=== PATIENT | female | born 1950 | race Caucasian/White ===

== ENCOUNTER → 2024-02-23 16:43 | Outpatient (REF) | payer MEDICARE, SELFPAY | LOC: WDC 16:43 | PROVIDERS: ATTENDING PHYSICIAN Obstetrics & Gynecology Gynecology; FAMILY PHYSICIAN Family Medicine | DX: Z12.31 Encounter for screening mammogram for malignant neoplasm of breast (principal) | CPT/HCPCS: 77063; 77067 ==

== ENCOUNTER → 2025-03-06 16:12 | Outpatient (REF) | payer MEDICARE, SELFPAY | LOC: WDC 16:12 | PROVIDERS: ATTENDING PHYSICIAN Obstetrics & Gynecology Gynecology; FAMILY PHYSICIAN Family Medicine | DX: Z12.39 Encounter for other screening for malignant neoplasm of breast (principal); Z12.31 Encounter for screening mammogram for malignant neoplasm of breast | CPT/HCPCS: 77063; 77067 ==

== ENCOUNTER 2025-05-24 13:35 | Emergency (ER) | payer MEDICARE, SELFPAY ==
[2025-05-24 13:39] VITALS: BP 171/107
--- NOTE | 2025-05-24 15:00 | ED.GENMED ---
History of Present Illness
General
Chief Complaint: Fall
Time Seen by Provider: 05/24/25 14:11
History of Present Illness
History of Present Illness:
FOCUSED PAST MEDICAL HISTORY
-
REVIEW OF OLD RECORDS
-
Note:
CHIEF COMPLAINT(S)
Fall with injury to the left wrist and head.
HISTORY OF PRESENT ILLNESS
The patient is a 74-year-old female who reports having a fall at [employer] earlier today around 12 to 1:30 PM. During the fall, she sustained a bump on the upper, outside part of her right eyebrow and a potential fracture of the left wrist. The patient
denies neck pain and has no pain in the upper arms, legs, hips, belly, or torso. She reports pain in the left wrist as she landed on her arm and hit her head during the fall. The evaluation includes an X-ray showing a fracture of the distal radius
of the left wrist with no significant bone displacement. A brain CT scan was performed, and preliminarily, there is no evidence of intracranial bleeding noted by the attending provider.
PAST MEDICAL AND SURGICAL HISTORY
The patient denies taking blood thinning medications, such as Xarelto, Coumadin, or aspirin.
PHYSICAL EXAM
General: Alert, no acute distress.
Skin: Warm, dry.
Head: Normocephalic, atraumatic. Small hematoma superior to the right lateral eyebrow.
Neck: Supple, trachea midline. No midline C spine tenderness.
Eye, Ears, Nose, Mouth, and Throat: Oral mucosa moist.
Cardiovascular: Normal peripheral perfusion, no edema.
Respiratory: Respirations are non-labored.
Gastrointestinal: Abdomen nondistended.
Musculoskeletal: Pain upon movement on the left wrist with good distal perfusion. Normal range of motion and strength in other areas. Moderate tenderness to palpation of the distal left wrist.
Neurological: Alert and oriented to person, place, time, and situation, no focal neurological deficit observed.
Psychiatric: Cooperative, appropriate mood & affect.
PROBLEM LIST
- Acute: Fracture of the left distal radius, small hematoma of the right eyebrow.
PLAN
- Apply a bowler splint to the left wrist to stabilize the fracture.
- Advise removal of any rings on the left hand to prevent circulation issues due to swelling.
- Recommend follow-up with an graphics production specialist for further evaluation and management of the wrist fracture.
- Monitor for changes in swelling or circulation in the left hand.
- Await official radiology reading of the CT scan to confirm no intracranial bleeding.
DIFFERENTIAL DIAGNOSIS
The Differential Diagnosis includes, in no particular order and is not limited to:
- Distal radius fracture
- Head trauma with possible concussion
- Intracranial hemorrhage
- Soft tissue injury of the scalp
- Bony contusion of the wrist
- Sprain of the wrist ligaments
- Muscle strain related to the fall
- Cervical spine injury (though unlikely given lack of symptoms)
- Hematoma formation
- Compartment syndrome of the wrist due to swelling
Disposition:
SUMMARY OF ENCOUNTER
The patient, a 74-year-old female, presented to the emergency department after experiencing a fall at [employer], resulting in a bump on her right eyebrow and a potential fracture of the left wrist. Evaluation revealed a small hematoma on the right
eyebrow with no signs of intracranial bleeding on the CT scan. Wrist X-ray showed a fracture of the distal radius with slight bone displacement, insufficient for immediate manipulation. The patient reported her wrist pain as mild, rated at a three
on a scale out of ten. Pain management options were discussed, and the use of acetaminophen (Tylenol) was suggested for pain relief. She was fitted with a splint to stabilize the wrist fracture and was advised to follow up with an orthopedic
specialist.
PLAN
- Apply a bowler splint to the left wrist for stabilization.
- Advise the patient to take acetaminophen for pain management.
- Recommend scheduling a follow-up appointment with an graphics production specialist.
- Provide contact information of the on-call orthopedic doctor for immediate scheduling, if possible.
INDEPENDENT REVIEW OF LABS AND INTERPRETATION OF TESTS
- My independent interpretation of the brain CT scan showed no intracranial bleeding, focusing on the external cosmetic bruising.
- My independent interpretation of the left wrist X-ray confirmed a distal radius fracture with slight displacement.
PATIENT EDUCATION AND COUNSELING
The patient was advised that the swelling and bruising around the right eyebrow may worsen before improving and may change colors over the next few days. Non-operative alternatives for pain management were discussed, highlighting the use of
acetaminophen. Travel limitations were discussed considering the wrist fracture and potential discomfort with the splint.
FOLLOW-UP INSTRUCTIONS
The patient was advised to follow up with an graphics production specialist as soon as possible and was provided with the contact details of the on-call orthopedic doctor for scheduling an appointment based on immediate availability.
MEDICATION RECONCILIATION
- Acetaminophen (Tylenol): suggested for pain management, with a recommendation to take two extra-strength tablets, amounting to 1000 mg, four times a day as needed.
MEDICAL DECISION MAKING
- Number and Complexity of Problems Addressed: Chronic conditions affecting care not specifically mentioned. Differential Diagnosis includes distal radius fracture, head trauma with possible concussion, and soft tissue injury.
- Data:
Category 1:
- My independent interpretation of CT and X-ray.
- Risk:
- Prescription medication was considered; however, no narcotics were prescribed in favor of acetaminophen for pain management.
DIAGNOSIS
- S52.501A: Fracture of unspecified part of left radius, initial encounter for closed fracture.
- S00.83XA: Contusion of other part of head, initial encounter.
RADIOLOGY
- X-ray shows distal radius fracture with minimal displacement, CT brain shows no intracranial abnormality
Patient will be splinted
She declines narcotic analgesia and will take Tylenol for pain
She will follow-up with orthopedics
Phy Exam
Physical Exam
Physical Exam:
See HPI
Course
Orders/Labs/Results
Orders:
Orders
05/24/25 13:42
CT Head W/o Iv Contrast Urgent
Comment:
Reason For Exam: injury
CR Wrist - Left Min 3 Views Urgent
Comment:
Reason For Exam: injury
05/24/25 14:29
Splints/Slings/Crut- Treatment ONCE
Sling to: Left Arm
Location: Left
Type of Splint: Volar
Vital Signs
Initial and Last Documented VS:
Initial Vital Signs
Temp Pulse Resp BP Pulse Ox
36.7 C 87 20 171/107 96
05/24/25 13:39 05/24/25 13:39 05/24/25 13:39 05/24/25 13:39 05/24/25 13:39
Last Documented Vital Signs
Temp Pulse Resp BP Pulse Ox
36.7 C 87 20 171/107 96
05/24/25 13:39 05/24/25 13:39 05/24/25 13:39 05/24/25 13:39 05/24/25 13:39
*Pulse Oximetry
SaO2: 96
Oxygen Mode of Delivery: Room air
Patient hypoxic: no
*Critical Care Note
Total Time (30-74mins, 75-104mins- exclusive of procedures): Not Applicable
ED Attending Note
-
Portions of this chart may have been created with voice recognition software.� Occasional wrong word or��sound alike� substitutions may have occurred due to the inherent limitations of voice recognition software.
Discharge Plan
Departure
Patient Disposition: Home (Routine Discharge)
Date of Disposition: 05/24/25
Time of Disposition: 14:58
Patient with high blood pressure during this ER visit?: Yes
Discharge Problem:
Distal radius fracture, left
Instructions: Head Injury in Adults (DC), Wrist fracture, BLOOD PRESSURE
Referrals:
John Izaguirre MD [Active, Orthopedics]
Nelson Langley MD [Family Provider, Family Practice]
Activity Restrictions/Additional Instructions:
You can take 2 [id number] extra strength Tylenol no more than 4 times per day. I have given the contact information for local orthopedist.
Interventions
Interventions:
*Risk Screen - Suicide Last Done: 05/24/25 13:57
*General Assessment Last Done: 05/24/25 13:39
*Neglect/Abuse Screening Last Done: 05/24/25 13:57
*ED- Fall Risk Assessment Last Done: 05/24/25 13:57
ED-Musculoskeletal Assessment Last Done: 05/24/25 13:57
ED- Neurological Assessment Last Done: 05/24/25 13:57
ED-Skin Assessment Last Done: 05/24/25 13:57
Discharge Date and Time
Print Language: WALLISIAN
== END 2025-05-24 15:00 | disposition home or self-care (01) ==
LOC: EMR 13:35
PROVIDERS: EMERGENCY PHYSICIAN Emergency Medicine; FAMILY PHYSICIAN Family Medicine
DX: S52.502A Unspecified fracture of the lower end of left radius, initial encounter for closed fracture (principal); R03.0 Elevated blood-pressure reading, without diagnosis of hypertension; W18.30XA Fall on same level, unspecified, initial encounter; Y92.22 Religious institution as the place of occurrence of the external cause
CPT/HCPCS: 99284; 70450; 73110

== ENCOUNTER → 2025-05-27 07:26 | Outpatient (REF) | payer MEDICARE, SELFPAY ==
[2025-05-27 09:37] LABS: ALT (SGPT) 18 U/L (0-35); AST (SGOT) 20 U/L (14-36); Albumin 4.4 g/dl (3.5-5.0); Alkaline Phosphatase 60 U/L (38-126); Blood Urea Nitrogen 17 mg/dl (7-17); Calcium 9.4 mg/dl (8.4-10.2); Carbon Dioxide 26 mmol/L (22-30); Chloride 102 mmol/L (98-107); Glucose 97 mg/dl (70-99); Potassium 4.7 mmol/L (3.5-5.1); Sodium 136 mmol/L (135-145); Total Protein 7.1 g/dl (6.3-8.2); eGFR > 60.00
[2025-05-27 10:06] LABS: TSH 2.13 uIU/ml (0.47-4.68)
== END ==
LOC: REG 07:26
PROVIDERS: ATTENDING PHYSICIAN Orthopaedic Surgery Hand Surgery; FAMILY PHYSICIAN Student in an Organized Health Care Education/Training Program
DX: Z01.818 Encounter for other preprocedural examination (principal); R79.89 Other specified abnormal findings of blood chemistry; E03.9 Hypothyroidism, unspecified
CPT/HCPCS: 36415; 80053; 84443; 93005

== ENCOUNTER → 2025-05-30 11:45 | Outpatient (REF) | payer MEDICARE, SELFPAY | LOC: RCS 11:45 | PROVIDERS: ATTENDING PHYSICIAN Internal Medicine Cardiovascular Disease; FAMILY PHYSICIAN Family Medicine; OTHER PHYSICIAN Family Medicine | DX: T14.8XXA Other injury of unspecified body region, initial encounter (principal); E78.5 Hyperlipidemia, unspecified; Z01.810 Encounter for preprocedural cardiovascular examination | CPT/HCPCS: 93306 ==